=== PATIENT | female | born 1960 ===

== ENCOUNTER → 2017-11-10 | Outpatient (REF) | payer OTHER | LOC: M LAB REF 16:33 | DX: R21 Rash and other nonspecific skin eruption (principal) | CPT/HCPCS: 87252 ==

== ENCOUNTER → 2020-09-03 | Outpatient (CLI) | payer SELFPAY | LOC: M LABSMTC 14:22 | PROVIDERS: ATTEND Pediatrics | DX: Z20.822 Contact with and (suspected) exposure to COVID-19 (principal) ==